=== PATIENT | female | born 1950 | race Caucasian/White ===

== ENCOUNTER 2021-06-17 20:16 | Emergency (ER) | payer MEDICARE, OTHER ==
[~2021-06-17] VITALS: Ht 162.6 cm; Wt 68.0 kg
[2021-06-17] MEDS ORDERED: PROTONIX40 M2 PO (20:23)
[2021-06-17 20:50] LABS: ABSOLUTE BASOPHILS 0.1 thou/uL (0.0-0.2); ABSOLUTE EOSINOPHILS 0.4 thou/uL (0.0-0.7); ABSOLUTE LYMPHOCYTES 1.7 thou/uL (0.8-5.3); ABSOLUTE MONOCYTES 0.7 thou/uL (0.0-1.2); ABSOLUTE NEUTROPHILS 4.1 thou/uL (1.6-8.1); BASOPHILS 0.7 %; EOSINOPHILS 5.3 %; HEMATOCRIT 34.2 % (37.0-47.0); HEMOGLOBIN 11.9 gm/dL (12.0-15.0); LYMPHOCYTES 24.4 %; MCH 29.9 pg (26.0-34.0); MCHC 34.9 g/dL (28.0-37.0); MCV 85.6 fL (80.0-100.0); MONOCYTES 9.6 %; NUCLEATED RBCS 0 /100WBC; PLATELET COUNT* 248 thou/uL (150-400); RBC 3.99 mil/uL (4.20-5.00); RDW-CV 14.1 % (10.5-14.5); WBC 6.9 thou/uL (4.0-11.0)
[2021-06-17 20:59] LABS: CALCIUM 8.6 mg/dL (8.5-10.1); CREATININE 1.1 mg/dL (0.6-1.3); POTASSIUM 4.2 mmol/L (3.5-5.1)
[2021-06-17 21:13] LABS: ALBUMIN 3.8 g/dL (3.4-5.0); CK-MB MASS 1.2 ng/mL (<0.5-3.6); TOTAL BILIRUBIN 0.6 mg/dL (<0.1-1.0); TOTAL PROTEIN 6.7 g/dL (6.4-8.2)
[2021-06-17] MEDS ORDERED: CYCLOBENZAPRINE5 MG PO (21:59)
[2021-06-17 22:13] VITALS: BP 145/70
--- NOTE | 2021-06-18 12:12 | EKG ---
[place] [address] ELECTROCARDIOGRAM REPORT Name: SERGIO NIETO Room: [facility]#: [id number] Admission: 06/17/21 Attend Phys: Discharge: 06/17/21 Date of : 50 Date of Service: 06/17/212027 Report #: [id number] THIS REPORT FOR: //name// [facility] ED Test Date: 2021-06-17 Test Time: 20:28:11 Pat Name: SERGIO NIETO Department: Room: Gender: Patient Ambassador: : 1950 Requested By: Talib Castañeda Order Number: [id number] MD: Mane Grayson Measurements Intervals [place] Rate: 71 P: 68 SD: 159 QRS: 56 QRSD: 88 T: 65 QT: 396 QTc: 431 Interpretive Statements Sinus rhythm No previous ECG available for comparison Electronically Signed On 06-18-2021 12:11:37 CDT by Mane Grayson [email or web address] <ELECTRONICALLY SIGNED> By: Mane Grayson MD, [facility] 06/18/211210 27 27 Mane Grayson MD, FACC /EPI
== END 2021-06-17 22:15 | disposition home or self-care (01) ==
LOC: M.ERS 20:16 → EDSEX 20:16 → M.ERS 22:15
PROVIDERS: Nurse Practitioner Psychiatric/Mental Health
DX: M54.6 Pain in thoracic spine (principal); E87.1 Hypo-osmolality and hyponatremia; I10 Essential (primary) hypertension; K21.9 Gastro-esophageal reflux disease without esophagitis; E78.00 Pure hypercholesterolemia, unspecified; Z79.899 Other long term (current) drug therapy; Z88.8 Allergy status to other drugs, medicaments and biological substances; Z88.1 Allergy status to other antibiotic agents; Z88.6 Allergy status to analgesic agent